=== PATIENT | male | born 1970 | race Caucasian/White ===

== ENCOUNTER 2025-04-12 11:43 | Outpatient (CLI) | payer OTHER, SELFPAY ==
--- NOTE | 2025-04-12 12:37 | ECG_ITS ---
Test Date: 2025-04-12 13:10:38 Measurements Intervals Walls Rate: 69 P: 41 DE: 164 QRS: -50 QRSD: 134 T: 30 QT: 396 QTc: 426 Interpretive Statements SINUS RHYTHM MARKED LEFT AXIS DEVIATION [QRS AXIS < -30] INTRAVENTRICULAR CONDUCTION DELAY [130+ ms QRS DURATION] MINIMAL VOLTAGE CRITERIA FOR LVH, CONSIDER NORMAL VARIANT [MEETS CRITERIA IN ONE OF: R(aVL), S(V1), R(V5), R(V5/V6)+S(V1)] WARNING: DATA QUALITY MAY AFFECT INTERPRETATION No previous ECG available for comparison Electronically Signed On 04-12-2025 14:50:00 CDT by Joey Dickey M.D.
[2025-04-12 13:21] LABS: Hematocrit 42.8 % (42.0-52.0); Hemoglobin 14.3 g/dL (14.0-18.0); Mean Corpuscular HGB Conc 33.4 g/dl (32-36); Mean Corpuscular Hemoglobin 30.2 pg (26-34); Mean Corpuscular Volume 90.5 fl (80-100); Platelet Count Result 260 k/mm3 (150-375); Red Blood Count 4.73 M/mm3 (4.6-6.20); White Blood Count 7.0 K/mm3 (4.5-10.0)
[2025-04-12 13:22] LABS: Add Urine Microscopic? NO; Appearance Urine Clear (Clear); Glucose Urine UA Negative (Negative); Leukocyte Esterase Ur Negative LEU/UL (Negative); Nitrate Urine Negative (Negative); Specific Grav Ur 1.016 (1.001-1.035)
[2025-04-12 13:36] LABS: INR 0.9; Prothrombin Time 12.6 Seconds (11.1-14.7)
[2025-04-12 13:37] LABS: Partial Thromboplastin Time 27.7 Seconds (22.3-36.8)
[2025-04-12 13:46] LABS: Anion Gap 11 mmol/L (4-12); Blood Urea Nitrogen 34 mg/dL (9-20); Calcium 9.6 mg/dL (8.4-10.2); Carbon Dioxide 24 mmol/L (22-30); Chloride 103 mmol/L (98-107); Estimated Glomerular Filt Rate > 60; Glucose 96 mg/dL (65-110); Potassium 3.9 mmol/L (3.4-5.0); Sodium 138 mmol/L (137-145)
== END 2025-04-12 11:44 | disposition home or self-care (01) ==
PROVIDERS: Visit Provider Neurological Surgery
DX: Z01.818 Encounter for other preprocedural examination (principal); M48.061 Spinal stenosis, lumbar region without neurogenic claudication
CPT/HCPCS: 36415; 80048; 81003; 85027; 85610; 85730; 93005

== ENCOUNTER 2025-05-04 01:34 | Day surgery (SDC) | payer OTHER, SELFPAY ==
[2025-04-12 12:08] VITALS: BP 140/92; PULSE 66; RESP 16; O2SAT 100; BMI 30.2
--- NOTE | 2025-04-12 12:33 | PC.NURSE ---
Report to the Outpatient Waiting Room, entrance under the green pavilion located off [facility], at time __06:00am on date _05/04/25 . Planned Procedure Time: 07:30am .? Time changes happen often and if your time is changed the preop area will call you the afternoon before. - You and your visitor will be asked to self-screen and do not enter if you have any COVID symptoms. Please call surgeon if you need to reschedule. - A mask is optional within the hospital at this time. Patients may have clear liquids (water, carbonated beverages, clear teas, apple juice) until 3 hours prior to surgery with a maximum of 20 ounces. - No food from midnight until time of surgery and no smoking, or chewing tobacco (or any form of nicotine). No chewing gum, candy or mints.(0430am) Take only the following medications with a SIP of water on the morning of surgery: ES Tylenol if needed DO NOT STOP ANY OF YOUR OTHER PRESCRIPTION MEDICATIONS PRIOR TO SURGERY EXCEPT THE FOLLOWING Hold all vitamins and supplements for 3 days per anesthesiologist. Medications to discontinue per physician NSAIDS/MOTRIN/ADVIL/ALEVE for 7 days preop per Rodriguez Date to take last dose 04/25/25 Please no make-up, nail spanish, hairspray, perfume, deodorant, or body powder the day of surgery.? No jewelry (including any body piercings) or valuables the day of surgery, leave them at home.? Please take a shower or bath the night before, or the morning of, surgery with an antibacterial soap.? Wear comfortable, loose fitting clothing.? - Jewelry must be removed prior to entering the operating room.? Rings and piercings that are not removed may be cut off. - The hospital will not accept responsibility for valuables.? - Please leave all valuables, including medications, at home the day of surgery. If you are going home after surgery, a licensed transit driver must drive you home.? - NO public transportation without another adult if you receive anesthesia. - We recommend that an adult stay with you for 24 hours following discharge. - We also recommend that you do not drive, make important decision, drink alcoholic beverages, or take any drugs that were not prescribed by your health care provider for at least 24 hours after your discharge time. Follow any additional instructions given to you from your surgeon. Telephone instructions given to __Patient and asked if any additional questions and then verbalized understanding. Patient advised to call surgeon office or pre surgery nurse liaison [phone] if any additional questions.
[2025-05-04] VITALS (9 sets, daily range): BP systolic 114–141; BP diastolic 69–96; PULSE 69–102; RESP 12–16; TEMP 36.4–36.7; O2SAT 95–100
--- NOTE | ~2025-05-04 | XR_ITS ---
XR fluoroscopy no charge Indication:L2-3, L3-4 bilateral lumbar laminectomy and medial facetectomy TECHNIQUE: Fluoroscopy used during L2-3, L3-4 bilateral lumbar laminectomy and medial facetectomy pe rformed by [Zurdo Rodriguez MD] on 05/04/2025. Seconds of fluoroscopy with one fluoroscopic imag es captured. FINDINGS: Correlate with procedure note. IMPRESSION: Fluoroscopy used during L2-3, L3-4 bilateral lumbar laminectomy and medial facetectomy. Reviewed, dictated and finalized at location A.
[2025-05-04] MEDS: LACTATED RINGERS 1,000 ML 30 ML IV CONT ×2 (06:30→10:00)
--- NOTE | 2025-05-04 07:09 | WPDHPUPDATE1 ---
History and Physical Update Update Date/Time: 05/04/25 07:09 History and Physical has been reviewed, including an updated exam of the patient. There are NO changes in the patient's condition. Risks, benefits, and alternatives have been discussed and questions answered. Patient agrees to proceed with procedure.
--- NOTE | 2025-05-04 07:24 | WPDANESEPPF ---
Anes - Initial Pre Proc Eval Procedure: Operation Date: 05/04/25 07:30 Proposed Procedures p L2-3, L3-4 Bilateral Lumbar Laminectomy, Bilateral Medial Facetectomy - Zurdo Rodriguez MD Date/Time: 05/04/25 07:24 Surgeon: Zurdo Rodriguez MD Pre Op Diagnosis: lumbar stenosis Patient Data Age: 54 Gender: M Height: 1.73 m Weight: 88.5 kg Last Vital Signs Temp 98.1 F 05/04/25 06:30 Pulse 79 05/04/25 06:30 Resp 16 05/04/25 06:30 BP 141/85 H 05/04/25 06:30 Pulse Ox 99 05/04/25 06:30 O2 Del Method Room Air 05/04/25 06:30 Allergies Allergy/AdvReac Type Severity Reaction Status Date / Time No Known Allergies Allergy Verified 05/04/25 06:54 Home Medications ?Medication ?Instructions ?Recorded ?Confirmed ?Type gabapentin 300 mg capsule 600 mg PO QHS 04/06/25 05/04/25 History ibuprofen 200 mg tablet 200 mg PO Q4H PRN pain 04/06/25 05/04/25 History lisinopril 10 1 tablet PO DAILY 04/06/25 05/04/25 History mg-hydrochlorothiazide 12.5 mg tablet Patient hx anesthesia problems: none Family hx anesthesia problems: none Results Review: All pre-operative results and documents have been reviewed as part of the pre-operative evaluation. [facility] Past Medical History Medical History HTN (hypertension) Family History Family History Father Hypertension Social History Social History (Updated 04/06/25 @ 14:53 by Ramona Reyes CMA) Smoking status: Smoker, status unknown Alcohol intake: never Substance use: never Substance use type: does not use Do You Feel Safe in your Home?: Yes Lack of Transportation: No Lack of Food: Never True Current Housing: I Have Housing Concerned About Future Housing: No Difficulty Paying Gas/Electric Bills: No Difficulty Paying for Meds: No Currently Unemployed: No Education: High School Diploma/GED Difficulty w/ Childcare or Family Care: No Anes - Eval Final PreProcedure Day of Procedure 05/04/25 07:24 Patient weight: normal Heart: regular rate and rhythm Lungs: clear to auscultation Airway: Mallampati scale class II Neurological: alert and oriented Last oral intake: >/= 8 hours ASA classification: II Emergent: no Anesthetic plan: proceed Anesthesia type and monitoring: general ETT and standard monitoring Results Review: All pre-operative results and documents have been reviewed as part of the pre-operative evaluation. Informed Consent: The patient's anesthetic plan and its attendant risks and benefits were discussed with the patient/family/POA. Questions were solicited and answers provided to the satisfaction of the patient/family/POA.
[2025-05-04] MEDS: ceFAZolin 2 GM in SODIUM CHLORIDE 0.9% IV 50 ML 100 ML IVPB (07:30)
[2025-05-04] MEDS: BUPIVACAINE/EPINEPHRINE 0.5% 30 ML VIAL INFILTRATE (08:19)
--- NOTE | 2025-05-04 09:53 | P.OP_ITS ---
Procedure Note - Detailed Date of Procedure 05/04/25 Pre-op Diagnosis lumbar stenosis Post-op Diagnosis Same Procedure Performed L2-3, L3-4 bilateral lumbar laminectomy and bilateral medial facetectomy Microdiskectomy at L2-3 Use of operating microscope for microdissection Surgeon Zurdo Rodriguez MD Anesthesia General Indications Lumbar spinal stenosis and neurogenic claudication as well as lumbar radiculopathy Description of Procedure Patient was brought into the operating room and turned over Anesthesia for intubation placement lines once this was complete the patient was positioned prone onto the Stone frame. All bony prominences were padded. Lateral fluoroscopy was brought in to confirm the correct levels. A skin incision was marked. The patient was then prepped and draped in the usual sterile fashion. A final time-out was performed indicating correct patient procedure and site. Local anesthetic was infiltrated into the incision. Incision was made along the pre planned incision. I then opened the fascia with Bovie electrocautery. I pe rformed this in a subperiosteal manner to minimize bleeding. Retractors were then placed and I brought in lateral fluoroscopy again to confirm the L2-3, L3-4 levels with curettes beneath the lamina. This was confirmed I then performed a laminectomy using a series of rongeurs to remove the spinous process and partial laminectomy. I then used a high-speed bur to drill through the lamina an eggshe ll the medial facet joints at L2-3 and 3 L3-4. This was then completed with Reba Carter. The thecal sac was decompressed from L2-L4. I put 2 nerve hooks at the top bottom of the incision and took a lateral fluoroscopy to confirm the decompression spanned the disc space at L2-3, L3-4 P at this point I moved my attention to the diskectomy portion of the case I performed additional component of medial facetectomy on the right side at L2-3 in order to obtain enough space to access the disc space at L2-3. A nerve retractor was placed and held by my housing assistant property manager. I then made a cruciate incision into the disc space. There was immediate egress of disc soft material. I further teased out additional disc and sucked out away with suction and use of a nerve hook. At this point the disc appeared mostly decompressed and the disc space was irrigated and hemostasis was obtained. I carefully obtained hemostasis as a news patient was going home this afternoon. I used FloSeal as well as wax along all bony edges. I then used bipolar electrocautery to cauterize any bleeding muscle. I then repeated this process 3 times to ensure there was no bleeding. At the at this point there was no additional bleeding the wound was again irrigated and no additional bleeding was identified. The wound was then closed in layers with Steri-Strips on the skin. The patient was then flipped supine and turned over Anesthesia for extubation. There were no complications. Estimated Blood Loss 100 Complications No immediate complications Disposition PACU [facility] Billing Surgery - Charge Forward: Surgery Billing
[2025-05-04] MEDS: ONDANSETRON INJ 4 MG/2 ML VIAL IV PUSH (10:26)
[2025-05-04] MEDS: fentaNYL CITRATE INJ (*CRX) 100 MCG/2 ML VIAL 25 MCG IV PUSH ×2 (10:50→10:52)
== END 2025-05-04 12:45 | disposition home or self-care (01) ==
PROVIDERS: Visit Provider Neurological Surgery
PROC: (CPT 63005; principal; 2025-05-04 07:30)
DX: M48.061 Spinal stenosis, lumbar region without neurogenic claudication (principal); I10 Essential (primary) hypertension; Z79.1 Long term (current) use of non-steroidal anti-inflammatories (NSAID)
CPT/HCPCS: 63047; 63048; 99199; J0690; J1100; J2003; J2250; J2371; J2405; J2704; J3010; J7120